=== PATIENT | female | born 1960 | race American Indian/Alaskan Native ===

== ENCOUNTER 2017-02-15 00:49 | Emergency (ER) | payer BC ==
--- NOTE | 2017-02-15 01:09 | Emergency Department Report ---
ED ENT HPI - General Stated complaint: SINUS INFECTION Time Seen by Provider: 02/15/17 01:03 Source: patient Mode of arrival: Ambulatory Limitations: No Limitations - History of Present Illness Initial comments: 56-year-old female with no significant past medical history presents to the hospital complaining of sinus infection symptoms. Patient has had nasal congestion and sinus drainage with facial pressure/aching pain that is mild to moderate in intensity. No aggravating or alleviating factors reported. Patient is taking Claritin [id number] without relief. She has had similar sensation in the past that improved with a Z-Pamela. Intermittent cough reported without fever. Clear nasal drainage reported. - Related Data Previous Rx's Medication Instructions Recorded Last Taken Type Azithromycin [Zithromax Z-PAMELA] 1 dose PO DAILY 5 Days 02/15/17 Unknown Rx Fluticasone [Flonase] 1 spray NS QDAY 7 Days 02/15/17 Unknown Rx ED Dental HPI - General Stated complaint: SINUS INFECTION Time Seen by Provider: 02/15/17 01:03 - Related Data Previous Rx's Medication Instructions Recorded Last Taken Type Azithromycin [Zithromax Z-PAMELA] 1 dose PO DAILY 5 Days 02/15/17 Unknown Rx Fluticasone [Flonase] 1 spray NS QDAY 7 Days 02/15/17 Unknown Rx ED Review of Systems ROS: Stated complaint: SINUS INFECTION Other details as noted in HPI Comment: All other systems reviewed and negative Other: Constitutional: No fevers chills Eyes: No eye pain visual changes ENT: as per hpi Neck: Denies pain Respiratory: Denies wheezing shortness of breath Cardiovascular: Denies chest pain, palpitations, syncope GI: Denies abdominal pain, nausea, vomiting, diarrhea : Denies dysuria Musculoskeletal: Denies back pain Skin: Denies rash, lesions, erythema Neurologic: Denies headache, numbness, weakness Psychiatric: Denies suicidal ideation, hallucinations ED Past Medical Hx - Past Medical History Previous Medical History?: No - Medications Home Medications: Home Medications Medication Instructions Recorded Confirmed Last Taken Type Azithromycin [Zithromax Z-PAMELA] 1 dose PO DAILY 5 Days 02/15/17 Unknown Rx Fluticasone [Flonase] 1 spray NS QDAY 7 Days 02/15/17 Unknown Rx ED Physical Exam - Other Other exam information: General: No limitations, patient is alert in no acute distress Head exam: Atraumatic, normocephalic Eyes exam: Normal appearance ENT: Moist mucous membrane, positive nasal congestion. No sinus tenderness on palpation Neck exam: Normal inspection, full range of motion, no meningismus nontender Respiratory exam: Clear to auscultation bilateral, no wheezes, rales, crackles Cardiovascular: Normal rate and rhythm, normal heart sounds Abdomen: Soft, nondistended, and nontender, with normal bowel sounds, no rebound, or guarding Extremity: Full range of motion normal inspection no deformity Back: Normal Inspection, full range of motion, no tenderness Neurologic: Alert, oriented x3, cranial nerves intact, no motor or sensory deficit Psychiatric: normal affect, normal mood Skin: Warm, dry, intact ED Course Vital Signs 02/15/17 01:15 Temperature 98.4 F Pulse Rate 98 H Respiratory 16 Rate Blood Pressure 135/90 [Left] O2 Sat by Pulse 99 Oximetry ED Medical Decision Making - Differential Diagnosis seasonal allergies, allergic rhinitis, sinusitis Critical Care Time: No Critical care attestation.: If time is entered above; I have spent that time in minutes in the direct care of this critically ill patient, excluding procedure time. ED Disposition Clinical Impression: Sinusitis, Allergic rhinitis Disposition: DISCHARGED TO HOME OR SELFCARE Is pt being admited?: No Does the pt Need Aspirin: No Condition: Stable Instructions: Sinusitis (ED), Allergic Rhinitis (ED) Additional Instructions: Use Zyrtec D over the counter medication for allergy symptoms. Take the medication as prescribed. Return if symptoms worsen. Prescriptions: Azithromycin [Zithromax Z-PAMELA] 1 dose PO DAILY 5 Days Fluticasone [Flonase] 1 spray NS QDAY 7 Days Referrals: PRIMARY CARE, [Primary Care Provider] - 3-5 Days Time of Disposition: 01:22
[2017-02-15 01:16] VITALS: BP 135/90
== END 2017-02-15 02:15 | disposition home or self-care (01) ==
LOC: ED 00:49
DX: J30.9 Allergic rhinitis, unspecified (principal); J32.9 Chronic sinusitis, unspecified
CPT/HCPCS: 99282